=== PATIENT | female | born 1945 | race Caucasian/White ===

== ENCOUNTER → 2020-12-24 | Outpatient (CLI) | payer MEDICARE, OTHER ==
--- NOTE | 2020-12-24 15:09 | KCIC ---
MRI of the lumbar spine without contrast 12/24/2020 CLINICAL HISTORY: Chronic low back pain. Lumbar stenosis. TECHNIQUE: Unenhanced T1-weighted and T2-weighted sagittal and axial and inversion recovery sagittal images of the lumbar spine were obtained. FINDINGS: Moderate to severe S-shaped scoliosis of the thoracolumbar spine is seen. Degenerative sign al changes and varying loss of height are seen involving all of the disks of the lumbar spine. Degene rative signal changes are seen within the marrow surrounding these discs. A 1 cm hemangioma is seen i nvolving the T11 vertebral body. The conus medullaris is normal in position and signal characteristic s. At the L1-2 disc space there is a mild generalized disc bulge. This is eccentric to the left. Degener ative changes are seen involving the facet joints, left greater than right. There is mild ligamentum flavum hypertrophy. These findings do not result in significant central spinal canal stenosis. Mild l eft neural foraminal stenosis is seen. The right neural foramen is patent. At the L2-3 disc space there is a mild generalized disc bulge. Posterior vertebral body osteophyte fo rmation is seen. Degenerative changes are seen involving the facet joints, left greater than right. T here is mild ligamentum flavum hypertrophy bilaterally. These findings when combined result in modera te left lateral central spinal canal stenosis. Mild left neural foraminal stenosis is seen. The right neural foramen is patent. At the L3-4 disc space there is a mild generalized disc bulge. Degenerative changes are seen involvin g the facet joints bilaterally. There is moderate ligamentum flavum hypertrophy bilaterally. These fi ndings when combined result in mild to moderate central spinal canal stenosis. Mild to moderate left greater than right neural foraminal stenosis is seen. At the L4-5 disc space there is a mild to moderate generalized disc bulge. Degenerative changes are s een involving the facet joints, right greater than left. There is mild to moderate ligamentum flavum hypertrophy bilaterally. These findings when combined result in mild central spinal canal stenosis. M ild right neural foraminal stenosis is seen. The left neural foramen is patent. At the L5-S1 disc space there is a mild generalized disc bulge. Degenerative changes are seen involvi ng the facet joints, right greater than left. These findings do not result in significant central spi nal canal stenosis. Mild right neural foraminal stenosis is seen. IMPRESSION: 1. Moderate to severe S-shaped scoliosis. 2. . The changes of degenerative disc disease are seen throughout the lumbar spine. These findings re sult in moderate left lateral central spinal canal stenosis at L2-3, mild to moderate central spinal canal stenosis at L3-4 and mild central spinal canal stenosis at L4-5. Mild left neural foraminal sury nosis is seen at L1-2 and L2-3. Mild to moderate left greater than right neural foraminal stenosis is seen at L3-4. Mild right neural foraminal stenosis is seen at L4-5 and L5-S1. Electronically signed by: Viral Clark MD (12/24/2020 3:07 PM) [id number]
== END ==
LOC: KCIC MRI 12:48
PROVIDERS: ATTEND Anesthesiology
DX: M47.817 Spondylosis without myelopathy or radiculopathy, lumbosacral region (principal); M48.07 Spinal stenosis, lumbosacral region; M41.86 Other forms of scoliosis, lumbar region
CPT/HCPCS: 72148